=== PATIENT | male | born 1960 | race Hispanic/Latino ===

== ENCOUNTER 2021-07-12 12:08 | Emergency (ER) | payer SELFPAY ==
[2021-07-12] MEDS ORDERED: Ketorolac Tromethamine 30 MG/ML VIAL ONE (13:48)
[2021-07-12 14:05] LABS: Hemoglobin 13.2 g/dL (14.0-18.0); Mean Corpuscular HGB CONC 34.1 g/dL (32.0-36.0); Mean Corpuscular Hemoglobin 35.1 pg (27.0-31.0); Mean Platelet Volume 7.9 fL (7.4-10.4); Platelet Count 172 thou/uL (130-400); RBC Distribution Width 11.6 % (11.5-14.5); Red Blood Cell (RBC) Count 3.75 mill/uL (4.70-6.10); White Blood Cell (WBC) Count 16.4 thou/uL (4.8-10.8)
[2021-07-12] MEDS ORDERED: Morphine 4 MG/ML VIAL ONE (14:08)
[2021-07-12] MEDS ORDERED: Ondansetron PF 4 MG/2 ML Vial ONE (14:08)
[2021-07-12] MEDS ORDERED: Cefepime 2 GM VIAL ONE (14:08)
[2021-07-12 14:22] LABS: ALT (SGPT) 94 U/L (8-55); AST (SGOT) 82 U/L (5-34); Albumin 3.8 g/dL (3.5-5.0); Alkaline Phosphatase 93 U/L (40-110); Anion Gap 16 mmol/L (10-20); BUN (Urea Nitrogen) 11 mg/dL (8.4-25.7); Bilirubin, Total 1.4 mg/dL (0.2-1.2); CK (CPK) 410 U/L (30-200); Calc. Creatinine Clearance 0 mL/min (70-130); Calcium 9.2 mg/dL (7.8-10.44); Carbon Dioxide 29 mmol/L (22-29); Chloride 87 mmol/L (98-107); Globulin 3.1 g/dL (2.4-3.5); Glucose 121 mg/dL (70-105); Potassium 4.1 mmol/L (3.5-5.1); Protein, Total 6.9 g/dL (6.0-8.3); Sodium 128 mmol/L (136-145)
[2021-07-12 14:35] LABS: Band 32 % (5-11); Lymphocytes 4 % (21-51); MDiff Complete? YES; Macrocytosis SLIGHT = 6-15 cells (100X) (0-5/hpf); Monocytes 9 % (0-10); Neutrophil 55 % (42-75); Platelet Morphology Comment Appears Adequate
[2021-07-12 15:29] LABS: Bilirubin Negative (Negative); Blood, Urine Negative (Negative); Clarity Clear (Clear); Glucose, Urine (Dipstick) Normal (Negative); Ketone, Urine Negative (Negative); Leukocyte Negative Leu/uL (Negative); Nitrite Negative (Negative); Protein, Urine (Dipstick) 20 mg/dL (Neg-Trace); Specific Gravity, Urine 1.013 (1.002-1.036); pH, Urine 6.5 (5.0-9.0)
== END 2021-07-12 15:45 | disposition short-term general hospital (02) ==
LOC: ERS 12:08
DX: T24.312A Burn of third degree of left thigh, initial encounter (principal); T23.202A Burn of second degree of left hand, unspecified site, initial encounter; T22.212A Burn of second degree of left forearm, initial encounter; T24.202A Burn of second degree of unspecified site of left lower limb, except ankle and foot, initial encounter; F17.210 Nicotine dependence, cigarettes, uncomplicated; X08.8XXA Exposure to other specified smoke, fire and flames, initial encounter
CPT/HCPCS: 16030; 80053; 81003; 82550; 83605; 85025; 87040; 87070; 87077; 87186; 87205; 96365; 96375; J0692; J1885; J2270; J2405

== ENCOUNTER 2022-04-23 22:20 | Inpatient (IN) | payer MEDICARE ==
[2022-04-24 00:52] VITALS: BMI 14.6
[2022-04-24] MEDS ORDERED: Ondansetron ODT 4 MG TAB PO PRN ×2 (01:32→01:42)
[2022-04-24] MEDS ORDERED: Ondansetron PF 4 MG/2 ML Vial IVP PRN (01:32)
[2022-04-24] MEDS ORDERED: Acetaminophen 325 MG TAB PO PRN (01:32)
[2022-04-24] MEDS ORDERED: Acetaminophen 650 MG Suppository PR PRN (01:32)
[2022-04-24] MEDS ORDERED: Lorazepam 1 MG TAB PO PRN (01:42)
[2022-04-24] MEDS ORDERED: Lorazepam 2 MG/ML VIAL IM PRN (01:42)
[2022-04-24] MEDS ORDERED: Electrolyte Replacement Protocol 1 EACH FS SCH (01:45)
[2022-04-24] MEDS ORDERED: Lorazepam 1 MG TAB PO SCH (02:00)
[2022-04-24] MEDS ORDERED: Magnesium 2 GM/50 ML(in water) 2 GM in Premix Bag 1 BAG IVPB SCH (02:00)
[2022-04-24] MEDS ORDERED: Potassium Chloride 20 MEQ TAB PO SCH ×2 (02:00→11:00)
[2022-04-24] MEDS ORDERED: Thiamine HCl 200 MG/2 ML VIAL SLOW IVP SCH (02:00)
[2022-04-24 05:39] LABS: Prothrombin Time 13.3 sec (12.0-14.7)
[2022-04-24 05:41] LABS: PTT 31.2 sec (22.9-36.1)
[2022-04-24] MEDS ORDERED: Folic Acid 1 MG TAB PO SCH (09:00)
[2022-04-24] MEDS ORDERED: Multivit, Therapeutic 1 TAB PO SCH (09:00)
[2022-04-24 09:28] LABS: #Basophils 0.1 thou/uL (0.0-0.2); #Eosinphils 0.2 thou/uL (0.0-0.7); #Lymphocytes 2.1 thou/uL (1.20-3.40); #Monocytes 0.6 thou/uL (0.11-0.59); #Neutrophils 5.3 thou/uL (1.40-6.50); %Basophils 0.7 % (0.0-1.0); %Eosinophils 2.9 % (0.0-10.0); %Lymphocytes 24.8 % (21.0-51.0); %Monocytes 7.3 % (0.0-10.0); %Neutrophils 64.3 % (42.0-75.0); Hemoglobin 14.6 g/dL (14.0-18.0); Mean Corpuscular HGB CONC 34.7 g/dL (32.0-36.0); Mean Corpuscular Hemoglobin 36.9 pg (27.0-31.0); Platelet Count 254 thou/uL (130-400); RBC Distribution Width 11.4 % (11.5-14.5); Red Blood Cell (RBC) Count 3.97 mill/uL (4.70-6.10); White Blood Cell (WBC) Count 8.3 thou/uL (4.8-10.8)
[2022-04-24] MEDS: Famotidine/PF 20 mg/2ml Vial SLOW IVP SCH ×2 (09:40→19:59)
[2022-04-24 09:55] LABS: ALT (SGPT) 58 U/L (8-55); AST (SGOT) 61 U/L (5-34); Albumin 3.3 g/dL (3.5-5.0); Alkaline Phosphatase 77 U/L (40-110); Anion Gap 12 mmol/L (10-20); BUN (Urea Nitrogen) 14 mg/dL (8.4-25.7); Bilirubin, Total 0.7 mg/dL (0.2-1.2); Calc. Creatinine Clearance 68 mL/min (70-130); Calcium 8.3 mg/dL (7.8-10.44); Carbon Dioxide 27 mmol/L (22-29); Chloride 100 mmol/L (98-107); Estimated GFR 107; Globulin 2.8 g/dL (2.4-3.5); Glucose 105 mg/dL (70-105); Potassium 3.4 mmol/L (3.5-5.1); Protein, Total 6.1 g/dL (6.0-8.3); Sodium 136 mmol/L (136-145)
[2022-04-24] MEDS: Famotidine 20 MG TAB PO SCH ×2 (09:55→20:25)
[2022-04-24] MEDS: Nicotine 21 MG PATCH TD SCH (09:55)
[2022-04-24] MEDS: Lorazepam 2 MG/ML VIAL SLOW IVP PRN (15:55)
[2022-04-24 16:09] LABS: Bacteria/HPF None Seen HPF (None Seen); Bilirubin Negative (Negative); Blood, Urine Negative (Negative); Clarity Clear (Clear); Glucose, Urine (Dipstick) Normal (Negative); Ketone, Urine Negative (Negative); Leukocyte Negative Leu/uL (Negative); Nitrite Negative (Negative); Protein, Urine (Dipstick) Negative (Neg-Trace); RBC/HPF 0-3 HPF (0-3); Specific Gravity, Urine 1.019 (1.002-1.036); Squamous Epithelial None Seen HPF (0-3); WBC/HPF 0-3 HPF (0-3)
[2022-04-24 16:11] LABS: Urine Culture Reflex No No
[2022-04-24] MEDS: Tamsulosin HCl 0.4 MG CAP PO SCH (20:25)
[2022-04-25] MEDS ORDERED: Lorazepam 1 MG TAB PO PRN ×2 (01:42→16:58)
[2022-04-25 05:49] LABS: #Basophils 0.1 thou/uL (0.0-0.2); #Eosinphils 0.2 thou/uL (0.0-0.7); #Lymphocytes 1.9 thou/uL (1.20-3.40); #Monocytes 0.5 thou/uL (0.11-0.59); #Neutrophils 4.9 thou/uL (1.40-6.50); %Basophils 0.9 % (0.0-1.0); %Eosinophils 2.6 % (0.0-10.0); %Neutrophils 64.4 % (42.0-75.0); Hemoglobin 13.7 g/dL (14.0-18.0); Mean Corpuscular HGB CONC 33.5 g/dL (32.0-36.0); Mean Corpuscular Hemoglobin 35.9 pg (27.0-31.0); Mean Platelet Volume 7.7 fL (7.4-10.4); Platelet Count 222 thou/uL (130-400); RBC Distribution Width 11.6 % (11.5-14.5); Red Blood Cell (RBC) Count 3.82 mill/uL (4.70-6.10); White Blood Cell (WBC) Count 7.6 thou/uL (4.8-10.8)
[2022-04-25 06:33] LABS: ALT (SGPT) 43 U/L (8-55); AST (SGOT) 36 U/L (5-34); Albumin 2.8 g/dL (3.5-5.0); Alkaline Phosphatase 61 U/L (40-110); Anion Gap 10 mmol/L (10-20); BUN (Urea Nitrogen) 11 mg/dL (8.4-25.7); Bilirubin, Total 0.4 mg/dL (0.2-1.2); Calc. Creatinine Clearance 83 mL/min (70-130); Calcium 8.2 mg/dL (7.8-10.44); Carbon Dioxide 26 mmol/L (22-29); Chloride 103 mmol/L (98-107); Estimated GFR 113; Globulin 2.4 g/dL (2.4-3.5); Glucose 99 mg/dL (70-105); Magnesium 1.5 mg/dL (1.6-2.6); Potassium 3.2 mmol/L (3.5-5.1); Protein, Total 5.2 g/dL (6.0-8.3); Sodium 136 mmol/L (136-145)
[2022-04-25] MEDS: Nicotine 21 MG PATCH TD SCH (07:59)
[2022-04-25] MEDS: Famotidine/PF 20 mg/2ml Vial SLOW IVP SCH ×2 (08:00→20:37)
[2022-04-25] MEDS: Folic Acid 1 MG TAB PO SCH (08:00)
[2022-04-25] MEDS: Famotidine 20 MG TAB PO SCH ×2 (08:00→20:39)
[2022-04-25] MEDS: Lorazepam 2 MG/ML VIAL SLOW IVP PRN (13:36)
[2022-04-25] MEDS: Tamsulosin HCl 0.4 MG CAP PO SCH (20:40)
[2022-04-26] MEDS ORDERED: Lorazepam 1 MG TAB PO PRN (01:42)
[2022-04-26] MEDS ORDERED: Lorazepam 0.5 MG TAB PO SCH (02:00)
[2022-04-26] MEDS: Nicotine 21 MG PATCH TD SCH (08:36)
[2022-04-26] MEDS: Folic Acid 1 MG TAB PO SCH (08:36)
[2022-04-26] MEDS: Famotidine 20 MG TAB PO SCH ×2 (08:36→20:42)
[2022-04-26] MEDS: Famotidine/PF 20 mg/2ml Vial SLOW IVP SCH (08:37)
[2022-04-26] MEDS ORDERED: Potassium Chloride 20 MEQ TAB PO SCH (14:45)
[2022-04-26] MEDS ORDERED: Electrolyte Replacement Protocol 1 EACH FS SCH (14:45)
[2022-04-26] MEDS ORDERED: Magnesium 2 GM/50 ML(in water) 2 GM in Premix Bag 1 BAG IVPB SCH (14:45)
[2022-04-26] MEDS ORDERED: Nicotine 14 MG PATCH TD PRN (15:00)
[2022-04-26] MEDS: Tamsulosin HCl 0.4 MG CAP PO SCH (20:42)
[2022-04-26] MEDS: Thiamine HCl 200 MG/2 ML VIAL SLOW IVP SCH (20:46)
[2022-04-27] MEDS ORDERED: Lorazepam 0.5 MG TAB PO PRN (01:42)
[2022-04-27 06:44] LABS: #Basophils 0.1 thou/uL (0.0-0.2); #Eosinphils 0.2 thou/uL (0.0-0.7); #Monocytes 0.6 thou/uL (0.11-0.59); #Neutrophils 3.7 thou/uL (1.40-6.50); %Basophils 0.9 % (0.0-1.0); %Eosinophils 3.4 % (0.0-10.0); %Lymphocytes 31.1 % (21.0-51.0); %Monocytes 8.4 % (0.0-10.0); %Neutrophils 56.1 % (42.0-75.0); Hemoglobin 13.6 g/dL (14.0-18.0); Mean Corpuscular HGB CONC 34.7 g/dL (32.0-36.0); Mean Corpuscular Hemoglobin 37.3 pg (27.0-31.0); Mean Platelet Volume 8.3 fL (7.4-10.4); Platelet Count 235 thou/uL (130-400); RBC Distribution Width 11.5 % (11.5-14.5); Red Blood Cell (RBC) Count 3.64 mill/uL (4.70-6.10); White Blood Cell (WBC) Count 6.5 thou/uL (4.8-10.8)
[2022-04-27 07:15] LABS: Anion Gap 11 mmol/L (10-20); BUN (Urea Nitrogen) 12 mg/dL (8.4-25.7); Calc. Creatinine Clearance 71 mL/min (70-130); Calcium 8.8 mg/dL (7.8-10.44); Carbon Dioxide 28 mmol/L (22-29); Chloride 104 mmol/L (98-107); Estimated GFR 108; Glucose 100 mg/dL (70-105); Magnesium 1.7 mg/dL (1.6-2.6); Phosphorus 4.1 mg/dL (2.3-4.7); Potassium 3.6 mmol/L (3.5-5.1); Sodium 139 mmol/L (136-145)
[2022-04-27] MEDS: Multivit, Therapeutic 1 TAB PO SCH (08:45)
[2022-04-27] MEDS: Famotidine 20 MG TAB PO SCH ×2 (08:45→20:27)
[2022-04-27] MEDS: Folic Acid 1 MG TAB PO SCH (08:45)
[2022-04-27] MEDS ORDERED: Thiamine 100 MG TAB PO SCH (09:00)
[2022-04-27] MEDS ORDERED: Magnesium 2 GM/50 ML(in water) 2 GM in Premix Bag 1 BAG IVPB SCH (09:00)
[2022-04-27] MEDS: Tamsulosin HCl 0.4 MG CAP PO SCH (20:28)
[2022-04-27] MEDS: Thiamine HCl 200 MG/2 ML VIAL SLOW IVP SCH (20:28)
[2022-04-27] MEDS ORDERED: chlordiazePOXIDE HCl 5 MG CAP PO SCH (21:00)
[2022-04-28] MEDS: Famotidine 20 MG TAB PO SCH ×2 (08:05→20:32)
[2022-04-28] MEDS: Multivit, Therapeutic 1 TAB PO SCH (08:05)
[2022-04-28] MEDS: Folic Acid 1 MG TAB PO SCH (08:05)
[2022-04-28] MEDS: Tamsulosin HCl 0.4 MG CAP PO SCH (20:32)
[2022-04-28] MEDS: Thiamine HCl 200 MG/2 ML VIAL SLOW IVP SCH (20:36)
[2022-04-29] MEDS: Famotidine 20 MG TAB PO SCH ×2 (08:13→20:28)
[2022-04-29] MEDS: Folic Acid 1 MG TAB PO SCH (08:13)
[2022-04-29] MEDS: Multivit, Therapeutic 1 TAB PO SCH (08:13)
[2022-04-29] MEDS: Tamsulosin HCl 0.4 MG CAP PO SCH (20:28)
[2022-04-29] MEDS ORDERED: Thiamine 100 MG TAB PO SCH (21:00)
[2022-04-30 08:03] VITALS: BP 126/73; TEMP 98.1
[2022-04-30] MEDS: Multivit, Therapeutic 1 TAB PO SCH (08:12)
[2022-04-30] MEDS: Famotidine 20 MG TAB PO SCH (08:12)
[2022-04-30] MEDS: Folic Acid 1 MG TAB PO SCH (08:12)
== END 2022-04-30 09:37 | DRG 896 ==
LOC: MSONC 23:39 → OBSVTOIN 04-24 17:04 → T4-B 04-24 23:30
PROVIDERS: ADMIT Student in an Organized Health Care Education/Training Program; ATTEND Internal Medicine
PROC: 0T9B70Z Drainage of Bladder with Drainage Device, Via Natural or Artificial Opening (ICD-10-PCS; principal; 2022-04-24)
DX: F10.239 Alcohol dependence with withdrawal, unspecified (principal); G93.41 Metabolic encephalopathy; I50.32 Chronic diastolic (congestive) heart failure; Z68.1 Body mass index [BMI] 19.9 or less, adult; I11.0 Hypertensive heart disease with heart failure; F17.210 Nicotine dependence, cigarettes, uncomplicated; E87.6 Hypokalemia; R74.8 Abnormal levels of other serum enzymes; R33.9 Retention of urine, unspecified; D64.9 Anemia, unspecified; E83.42 Hypomagnesemia; Z20.822 Contact with and (suspected) exposure to COVID-19; Z79.82 Long term (current) use of aspirin; Z79.899 Other long term (current) drug therapy
CPT/HCPCS: 36415; 70551; 71046; 80048; 80053; 81001; 82607; 82746; 83735; 84100; 85025; 85610; 85730; 96365; 96375; G0378; J2060; J3411; J3475; U0003; U0005